=== PATIENT | female | born 1995 | race Caucasian/White ===

== ENCOUNTER → 2019-10-15 | Outpatient (CLI) | payer BC ==
--- NOTE | 2019-10-15 17:12 | REP ---
RIGHT BREAST MAMMOGRAM WITH 3D TOMOSYNTHESIS, RIGHT BREAST ULTRASOUND: HISTORY: Lump medial right breast. No family history of breast cancer. Tyrer-Cuzick lifetime risk of breast cancer 14.6%. MLO and CC views of right breast performed with 3D tomosynthesis. Additional spot compression views are performed medially. There is mild fibroglandular tissue present. [place] breast density B. At the site of the palpable lump medially, there is a vague, subtle increased density in the range of about 1.5 cm in maximum diameter. Otherwise, no mass or clustered microcalcifications are seen in the right breast. Ultrasound of the palpable lump in the right breast medially demonstrates a superficial subcutaneous complex cystic structure with peripheral blood flow internally with Doppler evaluation. It measures 1.2 x 1.3 x 0.4 cm. IMPRESSION: BIRADS 4: BI-RADS/ACR category 4 mammogram. Suspicious Abnormality - biopsy should be considered. ACR 4 suspicious. No significant mammographic abnormality is seen. At the site of the palpable lump medial right breast, there is a superficial complex cystic structure with peripheral increased blood flow with Doppler evaluation. This may represent an inflammatory cyst, but I would recommend ultrasound-guided sampling to rule out the possibility of a cystic cancer. This mammogram was interpreted with the aid of an FDA-approved computer-aided detection system. The patient states she/he had a clinical breast exam in 08/2019. The patient letter being requested is M4.
== END ==
LOC: M WHC 11:25
PROVIDERS: ATTEND Nurse Practitioner Family
DX: N63.10 Unspecified lump in the right breast, unspecified quadrant (principal)
CPT/HCPCS: 76642; 77065; G0279

== ENCOUNTER 2019-11-03 07:45 | Day surgery (SDC) | payer BC ==
[~2019-11-03 07:45] MED LIST: HEPARIN SOD (PORCINE) 5000UNITS/ML 1ML VIAL/SYRINGE As Ordered ONE; HEPARIN SOD (PORCINE) 5000UNITS/ML 1ML VIAL/SYRINGE ONE; ceFAZolin 2 GM/D5W 50 ML IV BAG (J0690 PER 500MG) As Ordered ONE; ceFAZolin 2 GM/D5W 50 ML IV BAG (J0690 PER 500MG) ONE
[2019-11-03] MEDS ORDERED: BUPIVACAINE HCL 0.25% 30ML VIAL As Ordered ONE (08:32)
[2019-11-03] MEDS ORDERED: LIDOCAINE 1% SDV 30ML VIAL As Ordered ONE (08:32)
[2019-11-03] MEDS ORDERED: fentaNYL 100 MCG/2 ML INJECTION (J3010) As Ordered ONE (09:12)
[2019-11-03] MEDS ORDERED: propofoL 200 MG/20 ML VIAL As Ordered ONE ×2 (09:12→09:26)
[2019-11-03] MEDS ORDERED: MIDAZOLAM INJ 2MG/2ML VIAL (J2250 PER 1MG) As Ordered ONE (09:12)
--- NOTE | 2019-12-24 19:31 | ROOPDOC ---
[facility] Report Of Operation Report of Operation This is a late entry note for the encounter from the date11/03/19. Delay is due to major systemwide [facility] computer outage. Procedure Date 11/02 Dx: right breast sebaceous cyst Procedure: Excision of the right breast sebaceous cyst Findings: cystic structure seen on intraop US, excised completely Surgeon: Manny Childers INDICATIONS: Ms. Torres is a 24-year-old woman who was found to have a suspicious right breast lesion on US of the right breast. On physical exam there was a superficial lesion in the right medial breast with what appears to be a central pore. Sebaceous cyst was suspected and excision of the lesion was offered to the patient. Risks and possible complications of surgical procedure including bleeding, infection and injury to surrounding structures were explained to the patient and she wished to proceed. Consent was signed. My initials were placed on the operative site. Subcutaneous injection of 5000 units of heparin was done in Preop. DETAILS: Patient was taken to the operating room and placed on the operating room table. A sign in was called stating patients name, date of and the procedure to be done. Preoperative antibiotics were infused. MAC anesthesia was induced. Patients hands were extended on arm rests. Care was taken not to over extend the arms. Patients right breast was prepped and draped in the usual fashion. Appropriate time out was done again prior second part of the procedure. Patients name, date of , and the procedure to be done were confirmed. Next, local anesthetic using 1% lidocaine and 0.25 % Marcaine 50/50 mix was injected at the site of planned elliptical incision over the central pit. Presence of the cystic structure was confirmed with intraoperative sonography. The incision was made with the scalpel. Dissection was carried circumferentially around the cystic structure. And ellipse of skin with central pit was taken with the specimen. The specimen was labeled with patients name and right sebaceous cyst sent to pathology. Next, the wound was irrigated thoroughly and adequate hemostasis was assured. Additional local anesthetic was injected into surrounding tissues. space was approximated with 3-0 Vicryl. The dermis was closed with 3-0 Monocryl and skin was closed with 4-0 Monocryl. Surgical glue was placed over the incision. Patient emerged from the anesthesia without any problems. Fluffs were placed over the operative site and patients chest was wrapped snuggly in the RONY wrap. Sponge and instrument counts were done and were correct. Patient tolerated procedure well and was taken to recovery unit in stable condition. MANNY CHILDERS. Dec 24, 2019 19:31
== END 2019-11-03 10:55 | disposition home or self-care (01) ==
LOC: M SDC 07:45
PROVIDERS: ATTEND Surgery
DX: N60.01 Solitary cyst of right breast (principal); E28.2 Polycystic ovarian syndrome; E03.9 Hypothyroidism, unspecified; F90.9 Attention-deficit hyperactivity disorder, unspecified type; F41.9 Anxiety disorder, unspecified; E66.9 Obesity, unspecified; F17.218 Nicotine dependence, cigarettes, with other nicotine-induced disorders; Z79.899 Other long term (current) drug therapy
CPT/HCPCS: 19120; 86850; 86900; 86901; 88304; J0690; J1644; J2250; J3010